=== PATIENT | male | born 1995 | race African-American/Black ===

== ENCOUNTER 2021-04-03 12:07 | Emergency (ER) | payer SELFPAY ==
[~2021-04-03] VITALS: Ht 175.3 cm; Wt 73.0 kg
[2021-04-03] MEDS ORDERED: LORAZEPAM 2MG/ML CPJ IM STA (12:29)
[2021-04-03] MEDS ORDERED: DIPHENHYDRAMINE 50MG/ML VIAL IM STA (12:29)
[2021-04-03] MEDS ORDERED: HALOPERIDOL LACTATE 5MG/ML VIAL IM STA (12:29)
[2021-04-03 13:39] LABS: BASOPHILS % 0.5 % (0.0-2.0); EOSINOPHILS % 0.1 % (0.0-5.0); HEMOGLOBIN. 11.8 g/dL (14.0-18.0); LYMPHOCYTES % 12.3 % (20.0-50.0); MEAN CORPUSCULAR HEMOGLOBIN 29.3 pg (28.0-32.0); MEAN CORPUSCULAR VOLUME 89.3 fL (80.0-94.0); MEAN PLATELET VOLUME 9.7 fl (7.4-10.4); MONOCYTES % 8.8 % (2.0-8.0); NEUTROPHILS % 78.3 % (40.0-76.0); PLATELET 193 x1000/uL (130-400); RED BLOOD CELL COUNT 4.03 mill/uL (4.7-6.1); RED CELL DISTRIBUTION WIDTH 13.1 % (11.6-14.6)
[2021-04-03 13:41] LABS: CHLORIDE 106 mEq/L (98-107)
[2021-04-03 13:46] LABS: ETHANOL BLOOD < 10 mg/dL
[2021-04-03 15:27] LABS: CLARITY URINE CLEAR (CLEAR); COLOR URINE DARK YELLOW (YELLOW); KETONES URINE 1+ (NEGATIVE); LEUKOCYTE ESTERASE URINE 2+ (NEGATIVE); NITRITE URINE NEGATIVE (NEGATIVE); OCCULT BLOOD URINE 2+ (NEGATIVE); PROTEIN URINE 1+ (NEGATIVE); SPECIFIC GRAVITY URINE 1.029 (1.005-1.030)
[2021-04-03 15:43] LABS: *BENZODIAZEPINES SCREEN URINE NEGATIVE (NEGATIVE); METHADONE URINE SCREEN NEGATIVE (NEGATIVE); OPIATES URINE SCREEN NEGATIVE (NEGATIVE); PHENCYCLIDINE URINE SCREEN NEGATIVE (NEGATIVE)
[2021-04-03 15:44] LABS: *AMPHETAMINES SCREEN URINE PRESUMTIVE POSITIVE (NEGATIVE); *BARBITURATES SCREEN URINE NEGATIVE (NEGATIVE); *COCAINE SCREEN URINE NEGATIVE (NEGATIVE); CANNABINOID URINE SCREEN PRESUMTIVE POSITIVE (NEGATIVE)
[2021-04-03] MEDS ORDERED: POTASSIUM CHLORIDE 20MEQ TABLET SR PO ONE (17:15)
[2021-04-03] MEDS ORDERED: CEPHALEXIN 250MG CAPSULE PO ONE (17:15)
[2021-04-03] MEDS ORDERED: KCL 10MEQ/50ML PREMIX 50 ML IV ONE (17:15)
[2021-04-03 20:26] LABS: CHLORIDE 107 mEq/L (98-107)
[2021-04-03 22:00] VITALS: BP 115/60
[2021-04-04] MEDS ORDERED: CEPH500T MT (00:05)
== END 2021-04-04 00:53 | disposition home or self-care (01) ==
LOC: ER 12:32
DX: R45.1 Restlessness and agitation (principal); I49.9 Cardiac arrhythmia, unspecified
CPT/HCPCS: 36415; 80048; 80053; 80305; 80307; 80320; 80329; 81003; 83735; 85025; 87086; 93005; 96365; 96372; 99285; J1200; J1630; J2060; J3480; G0480

== ENCOUNTER 2021-06-08 04:21 | Emergency (ER) | payer MEDICAID ==
[~2021-06-08] VITALS: Ht 175.3 cm; Wt 69.0 kg
[~2021-06-08 04:21] MED LIST: CEPH500T MT
[2021-06-08 04:23] VITALS: BP 138/81
== END 2021-06-08 05:41 ==
LOC: ER 04:21
DX: S00.81XA Abrasion of other part of head, initial encounter (principal); X58.XXXA Exposure to other specified factors, initial encounter; Y93.89 Activity, other specified; Y92.89 Other specified places as the place of occurrence of the external cause; Y99.8 Other external cause status; Z98.890 Other specified postprocedural states
CPT/HCPCS: 99283

== ENCOUNTER 2021-10-14 13:55 | Emergency (ER) | payer MEDICAID, OTHER ==
[~2021-10-14] VITALS: Ht 175.3 cm; Wt 75.0 kg
[2021-10-14] MEDS ORDERED: IBUPROFEN 600MG TABLET PO ONE (14:30)
[2021-10-14] MEDS ORDERED: IBUP-2029 MT (14:34)
[2021-10-14 15:14] VITALS: BP 125/87
== END 2021-10-14 15:14 | disposition home or self-care (01) ==
LOC: ER 14:02
DX: M79.10 Myalgia, unspecified site (principal); Z59.00 Homelessness unspecified
CPT/HCPCS: 99283